=== PATIENT | female | born 1990 | race Caucasian/White ===

== ENCOUNTER 2018-12-23 18:16 | Emergency (ER) | payer BC ==
--- NOTE | 2018-12-23 18:33 | EDPHY ---
General - History Smoking Status: Never smoked Time Seen by Provider: 12/23/18 18:33 Narrative: CLINICAL IMPRESSION: Right middle finger laceration ASSESSMENT/PLAN: Patient is a 28-year-old female with no significant medical history presents to the emergency department with a right middle finger laceration sustained just prior to arrival. Physical examination reveals a 1 cm superficial laceration to the distal phalanx pad of the right middle finger. There is no evidence of deep structure involvement, neurovascular compromise, foreign body, or bony involvement. The wound was not contaminated, tetanus status was up-to-date. The wound was irrigated and then repaired as discussed in the procedure note, the patient tolerated this well. Wound care instructions discussed, she will return in 7 days for suture removal. Return precautions discussed. ED PROCEDURES: Laceration Repair Verbal consent obtained by patient. Risks discussed, including but not limited to infection, pain, retained foreign body, need for additional repair, poor cosmetic result, tendon damage, nerve damage, poor wound healing, vascular damage. Alternatives to repair discussed. Simpson protocol used to establish correct patient, procedure, equipment and site. Anesthesia obtained by local infiltration. Anesthetized with 1% lidocaine with epinephrine. Laceration location distal phalanx of the right middle finger , length 1 cm, depth a 2 mm, Repair type simple. Patient was prepped and draped in usual sterile fashion. Hemostasis achieved with direct pressure. Wound explored and entire depth of wound probed and visualized with gloved finger. No suspicion for nerve damage, tendon damage, underlying fracture, vascular damage, foreign body, or contamination. Area was cleansed with Shur-Clens and irrigated with sterile saline as per protocol. No foreign body or material removed. Repair method 5 0 Prolene. 4 sutures placed. Well aligned, closely approximated. wound was dressed with antibiotic ointment and a dressing. Patient tolerated well with no immediate complications. Wound care: Clean and dry x 24 hours, gently clean with soap and water, cover with topical antibiotic ointment/bandage. Suture/Staple removal: 7 Days CHIEF COMPLAINT: Right middle finger Laceration HPI: Patient is a 28-year-old female with no significant medical history who presents to the emergency department with complaints of a right middle finger laceration sustained just prior to arrival. Patient reports she was reaching into her dry food products mixer when she accidentally cut the tip of her middle finger on the blade. She was able to get the bleeding under control. She is left handed, she is up-to-date on her tetanus. She denies any decreased range of motion, strength or sensation. She denies any other injury or complaint. REVIEW OF SYSTEMS: All other systems negative, please see HPI. PHYSICAL EXAM: General Appearance: Alert, oriented, appropriate for age, cooperative, NAD, well hydrated, non-toxic appearing, VSS, no hypoxia. Neurological: Alert and oriented x 3. Cranial nerves 2-12 grossly intact. Skin: Warm, dry. See below. Upper Extremities: Right middle finger reveals a 1 cm superficial laceration at the distal portion of the right middle distal phalanx. There is no active bleeding. Two point discrimination is intact. This does not involve the nail, interphalangeal joint was tested independently with full strength. Right hand and upper extremity otherwise unremarkable. Left upper extremity unremarkable- Intact distal pulses, Full range of motion intact, no tenderness, no ecchymosis or edema. Lower Extremities: Intact distal pulses, No edema, No tenderness, No cyanosis, full range of motion intact, No calf tenderness bilaterally. MEDICAL DECISION MAKING: Patient was seen independently. Secondary supervising physician at time of evaluation was Mora, she did not evaluate this patient. Diagnosis: Right middle finger laceration. Summary: See assessment and plan for summary of ED visit Decision to obtain medical records or history from someone other than the patient: No Review / Summarize previous medical records: Yes Disposition: Stable, discharge (Luda Fish) The patient was evaluated and managed by the physician quality assurance assistant. I have reviewed this chart and I agree with the findings and plan of care as documented , as indicated by my signature. I am the secondary supervising physician. ( Rhina Velazco) - Objective Vital Signs: Initial Vital Signs Temperature (C) 36.9 C 12/23/18 18:23 Heart Rate 62 12/23/18 18:23 Respiratory Rate 16 12/23/18 18:23 Blood Pressure 132/85 H 12/23/18 18:23 O2 Sat (%) 99 12/23/18 18:23 O2 Delivery Mode Room Air Allergies/Adverse Reactions: No Known Allergies Allergy (Unverified 12/23/18 18:22) Home Medications: Medication Instructions Recorded NK [No Known Home Meds] 12/23/18 Departure - Departure Disposition: Home, Routine, Self-Care Clinical Impression: Finger laceration Condition: Good Instructions: Finger Laceration (ED) Additional Instructions: DISCHARGE INSTRUCTIONS FROM YOUR PROVIDER Thank you for visiting our emergency department today. Keep wound clean and dry for 24 hours. Then remove dressing, clean at least twice daily or when soiled with soap and water, apply antibiotic ointment and dressing. Do not soak the wound while the stitches are in place. Elevate hand as much as possible for the next 24 hours to decrease the swelling and pain. Anticipate suture removal in 7 days, you may return to the emergency department to have this done. Tylenol every 4-6 hours as directed as needed for pain. Do not exceed 4000 mg in 24 hours. Ibuprofen as directed every 6-8 hours with food as needed for pain. Stop for stomach upset. Do not exceed 2400 mg in 24 hours. Continue your regular medications as prescribed. As discussed the laceration was not deep enough to visualize the tendon today. It is unlikely a tendon injury is present and your tendon function is currently intact. However, if at any time, you feel a pop and have difficulty bending or straightening the finger, you should seek re-evaluation from a hand specialist urgently. Return for signs of wound infection ie: redness, swelling, drainage, foul odor, red streaks, fever, chills, pain, bleeding, if the stitches pop, if the wound opens, for numbness, tingling, weakness, discoloration of the finger, coolness of the finger, inability to move or bend the finger or for any other new, worsening or worrisome symptoms. People present with illnesses and injuries in different ways, and it is always possible that we have missed something. Again, thank you for choosing our emergency department. We hope that you feel better. Referrals: ED,PHYSICIAN RUBIN [Medical Doctor] - As per Instructions (Seven days for suture removal) Abiodun Delgado MD [Medical Doctor] - As per Instructions (Please establish care with a primary care provider if you do not already have 1)
[2018-12-23 19:35] VITALS: BP 124/69
== END 2018-12-23 19:34 | disposition home or self-care (01) ==
PROC: 0HQFXZZ Repair Right Hand Skin, External Approach (ICD-10-PCS; principal; 2018-12-23)
DX: S61.212A Laceration without foreign body of right middle finger without damage to nail, initial encounter (principal); W29.0XXA Contact with powered kitchen appliance, initial encounter; Y92.000 Kitchen of unspecified non-institutional (private) residence as the place of occurrence of the external cause